=== PATIENT | female | born 2000 | race Two or more races ===

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

== ENCOUNTER 2019-09-19 22:12 | Emergency (ER) | payer SELFPAY ==
[2019-09-19] MEDS ORDERED: Acetaminophen/HYDROcodone 325-5 MG Tab PO ONE (22:13)
[2019-09-19] MEDS ORDERED: Acetaminophen/oxyCODONE 325-5 MG Tab PO STA (22:22)
[2019-09-19] MEDS ORDERED: Ketorolac 30 MG/ML SDV IM ONE (22:23)
--- NOTE | 2019-09-19 22:30 | EDM.PDOC ---
ED HPI GENERAL MEDICAL PROBLEM - General Chief Complaint: Chest Pain Stated Complaint: SIDE PAIN Time Seen by Provider: 09/19/19 22:25 Source of Information: Reports: Patient, Family, Old Records History Limitations: Reports: No Limitations - History of Present Illness INITIAL COMMENTS - FREE TEXT/NARRATIVE: 19 yo female here with abrupt onset of L ant/lateral chest wall pain while sitting watching TV. She has not had any injury to the area. No recent coughing. No change in bowel or bladder fxn. No fever. Pain is increased with breathing or coughing or pushing on area or even with moving. She received ibuprofen 400 mg within the last hour so far without relief. No recent calf pain or LE edema or travel. No hx of the same. Has a pHx of mild asthma. Onset: Today Onset Date: 09/19/19 Onset Time: 20:30 Duration: Minutes:, Constant Location: Reports: Chest (lower anterior/lateral chest). Denies: Abdomen, Lower Extremity, Left, Lower Extremity, Right Quality: Reports: Sharp, Stabbing Severity: Severe Improves with: Reports: Rest Worsens with: Reports: Movement ( coughing or deep breathing or pushing on area. ) Context: Reports: Other (unknown) Associated Symptoms: Reports: Chest Pain (see description of location. ). Denies: Cough, Fever/Chills, Nausea/Vomiting, Rash, Shortness of Breath, Syncope Treatments [employer]: Reports: NSAIDS - Related Data Allergies Allergy/AdvReac Type Severity Reaction Status Date / Time No Known Allergies Allergy Verified 08/17/18 00:43 Home Meds: Home Meds .Inhaler 1 puff INH ASDIRECTED PRN 02/26/17 [History] Past Medical History Respiratory History: Reports: Asthma ED ROS GENERAL - Review of Systems Review Of Systems: See Below Constitutional: Reports: No Symptoms HEENT: Reports: No Symptoms Respiratory: Reports: Shortness of Breath (pain with breathing makes her feel SOB), Pleuritic Chest Pain. Denies: Wheezing, Cough, Sputum, Hemoptysis Cardiovascular: Reports: No Symptoms GI/Abdominal: Reports: No Symptoms : Reports: No Symptoms Musculoskeletal: Reports: No Symptoms Skin: Reports: No Symptoms Neurological: Reports: No Symptoms ED EXAM, GENERAL - Physical Exam Exam: See Below Exam Limited By: No Limitations General Appearance: Alert, WD/WN, Mild Distress (crying) Eye Exam: Bilateral Eye: Normal Inspection Ears: Normal External Exam, Normal Canal, Hearing Grossly Normal, Normal TMs Ear Exam: Bilateral Ear: Auricle Normal, Canal Normal, TM normal Nose: Normal Inspection, No Blood Throat/Mouth: Normal Inspection, Normal Lips, Normal Oropharynx, Normal Voice, No Airway Compromise Head: Atraumatic, Normocephalic Neck: Normal Inspection Respiratory/Chest: No Respiratory Distress, Lungs Clear, Normal Breath Sounds, No Accessory Muscle Use. No: Chest Non-Tender (chest wall tenderness without crepitus to the lower/anterior/lateral area. ) Cardiovascular: Regular Rate, Rhythm, No Edema GI/Abdominal: Normal Bowel Sounds, Soft, Non-Tender, No Distention Back Exam: Normal Inspection. No: CVA Tenderness (R), CVA Tenderness (L) Extremities: Normal Inspection, Normal Range of Motion, Non-Tender, No Pedal Edema. No: Pedal Edema Neurological: Alert, Oriented, CN II-XII Intact, Normal Cognition, No Motor/ Sensory Deficits Psychiatric: Normal Affect, Normal Mood Skin Exam: Warm, Dry, Intact, Normal Color, No Rash. No: Cyanosis, Diaphoretic , Ecchymosis, Erythema, Increased Warmth, Petechiae, Zoster-Like Rash Course - Orders/Labs/Meds Labs: Laboratory Tests 09/19/19 09/19/19 Range/Units 22:34 22:34 WBC 8.5 (4.5-12.0) X10-3/uL RBC 4.59 (3.23-5.20) x10(6)uL Hgb 13.0 (11.5-15.5) g/dL Hct 39.3 (30.0-51.3) % MCV 85.6 (80-96) fL MCH 28.3 (27.7-33.6) pg MCHC 33.1 (32.2-35.4) g/dL RDW 13.0 (11.5-15.5) % Plt Count 208 (125-369) X10(3)uL D-Dimer, Quantitative 0.44 (0.0-0.59) mg/LFEU Meds: Medications Discontinued Medications Generic Name Dose Route Start Last Admin Trade Name Freq PRN Reason Stop Dose Admin Ketorolac Tromethamine 30 mg 09/19/19 22:23 09/19/19 22:36 Toradol IM 09/19/19 22:24 30 mg ONETIME ONE Administration Oxycodone/Acetaminophen 1 tab 09/19/19 22:22 09/19/19 22:37 Percocet 325-5 Mg PO 09/19/19 22:23 1 tab ONETIME STA Administration - Re-Assessments/Exams Free Text/Narrative Re-Assessment/Exam: 09/19/19 23:07 Pain is now much better. Departure - Departure Time of Disposition: 23:15 Disposition: Home, Self-Care 01 Condition: Good Clinical Impression: Pleurisy - Discharge Information *PRESCRIPTION DRUG MONITORING PROGRAM REVIEWED*: No *COPY OF PRESCRIPTION DRUG MONITORING REPORT IN PATIENT MARIBETH: No Instructions: Pleurisy, [id number] Referrals: PCP,None [Primary Care Provider] - Forms: ED Department Discharge Additional Instructions: Take ibuprofen 600 mg every 6 hrs with food for pain relief, next dose after 0430h in the morning. Then add either acetaminophen per package instructions OR Kirk as directed for added relief. Recheck with you provider in a couple days if not fully recovered. Avoid exposure to any smoke or chemical fumes. Sepsis Event Note - Focused Exam Date Exam was Performed: 09/19/19 Time Exam was Performed: 23:05
[2019-09-20 01:03] VITALS: BP 125/73; PULSE 89
== END 2019-09-19 23:13 | disposition home or self-care (01) ==
LOC: FB.ED 22:12
DX: R09.1 Pleurisy (principal); J45.909 Unspecified asthma, uncomplicated; Z79.899 Other long term (current) drug therapy
CPT/HCPCS: 36415; 85027; 85379; 96372; 99283; 99285; A9270; J1885